=== PATIENT | female | born 1965 | race African-American/Black ===

== ENCOUNTER 2023-10-21 20:24 | Emergency (ER) | payer OTHER, SELFPAY ==
--- NOTE | ~2023-10-21 | XR_ITS ---
EXAMINATION: XR wrist LT min 3V DATE: 10/21/2023 21:08 INDICATION: Left wrist pain TECHNIQUE: Posteroanterior, ulnar deviation, oblique, and lateral views of the left wrist were obtain ed. COMPARISON: none FINDINGS: 1 mm ulnar positive variance. Alignment is otherwise normal. There is a subtle concavity with underly ing lucency at the ulnar side of the proximal articular surface of the lunate with location suspiciou s for ulnocarpal impaction. There is more prominent subarticular lucency with thin sclerotic margins at the ulnar side of the distal radius which could represent either degenerative cystic change or les s likely chronic erosion.. No fracture. 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 IMPRESSION: 1. 1 mm ulnar positive variance with suggestion of mild cystic change at the ulnar side of the lunate suggestive of ulnocarpal impaction. 2. Prominent chronic appearing lucent lesion with thin sclerotic margins at the ulnar side of the dis mayo radial articular surface most likely degenerative cystic change with differential including less likely chronic chronic nonspecific erosion. 3. 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 Reviewed, dictated and finalized at location A. [facility] IMPRESSION: 1. 1 mm ulnar positive variance with suggestion of mild cystic change at the ul fritz side of the lunate suggestive of ulnocarpal impaction. 2. Prominent chronic appearing lucent lesion with thin sclerotic margins at the ulnar side of the distal radial articular surface most likely degenerative cys tic change with differential including less likely chronic chronic nonspecific erosion. 3. 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
[2023-10-21 20:56] VITALS: BP 150/82; PULSE 67; RESP 18; TEMP 36.3; O2SAT 100
--- NOTE | 2023-10-21 23:13 | ED.UPPEXIN ---
HPI - Extremity Injury (Upper) General Chief Complaint: Extremity Injury, Upper Stated Complaint: L wrist injury Time Seen by Provider: 10/21/23 22:14 Source: patient Mode of arrival: ambulatory Limitations: no limitations History of Present Illness HPI narrative: This is a 58 year old female that presents to the ER for left wrist pain. Ongoing over the last several months. Reports pain worse with movement and relieved with rest. 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 Denies decreased ROM or numbness. Related Data Allergies Allergy/AdvReac Type Severity Reaction Status Date / Time No Known Allergies Allergy Unverified 04/19/15 11:04 Review of Systems Review of Systems: CONSTITUTIONAL: Denies fever SKIN: Denies rash MUSCULOSKELETAL: Reports joint pain, and myalgia. NEUROLOGIC: Denies numbness All systems reviewed & are unremarkable except as noted in HPI and below PMFSH Past Medical History Medical History (Updated 10/21/23 @ 23:21 by Claudia Heller PA-C) History of hypertension Social History Social History (Updated 10/21/23 @ 23:15 by Claudia Heller PA-C) Smoking status: Never smoker Exam Narrative: GENERAL: Well-appearing, well-nourished, and in no acute distress. HEAD: Normocephalic, atraumatic. EYES: EOMI. EXTREMITIES: Normal range of motion. No edema, erythema or obvious deformity. Normal radial pulse. Normal sensation SKIN: Warm, dry, no rash. NEURO: No focal deficits. Alert and oriented x3. PSYCH: Normal mood and affect Course Vital Signs Vital signs: Vital Signs Temperature 97.4 F L 10/21/23 20:56 Pulse Rate 67 10/21/23 20:56 Respiratory Rate 18 10/21/23 20:56 Blood Pressure 150/82 H 10/21/23 20:56 Pulse Oximetry 100 10/21/23 20:56 Oxygen Delivery Room Air 10/21/23 20:56 Temperature 97.4 F L 10/21/23 20:56 Pulse Rate 67 10/21/23 20:56 Respiratory Rate 18 10/21/23 20:56 Blood Pressure 150/82 H 10/21/23 20:56 Pulse Oximetry 100 10/21/23 20:56 Oxygen Delivery Room Air 10/21/23 20:56 MDM - Extremity Injury (Upper) MDM Narrative Medical decision making narrative: Patient presents to the ER for wrist pain ongoing over the last several months. No certain injury. She is afebrile and nontoxic appearing. She is neurovascularly intact. Left wrist x-ray shows 1 mm ulnar positive variance. Prominent chronic appearing lucent lesion at the ulnar side of the distal radial articular surface. 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 Patient updated on her workup. Will be given Hand surgery for further follow-up. She was given warnings to return to the ER Differential Diagnosis Differential diagnosis: Likely sprain and strain of wrist and other (carpal tunnel) Imaging Data Radiologist's impression: ITS Impressions Wrist X-Ray 10/21/23 21:14 IMPRESSION: 1. 1 mm ulnar positive variance with suggestion of mild cystic change at the ulnar side of the lunate suggestive of ulnocarpal impaction. 2. Prominent chronic appearing lucent lesion with thin sclerotic margins at the ulnar side of the distal radial articular surface most likely degenerative cystic change with differential including less likely chronic chronic nonspecific erosion. 3. 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 Critical Care Time Critical Care Time Critical Care Time: No Discharge Plan Discharge Clinical Impression: Left wrist pain Patient Disposition: Home, Self-Care Condition: Stable Instructions: Wrist Injury (ED) Additional Instructions: Return to the ER if you experience fever, redness and swelling of your extremity, numbness or any other symptoms that are concerning to you Ice and elevate extremity. Tylenol or Ibuprofen as needed for pain Follow up with hand surgery for further care. Follow-up/Referrals: Jessica Mccrary MD [Physician] - Gamez,Zo Dillard MD [Primary Care Provider] - Stand Alone Forms: Work
[2023-10-21] MEDS: KETOROLAC 30 MG/ML VIAL (*BKC) IM (23:18)
== END 2023-10-21 23:27 | disposition home or self-care (01) ==
PROVIDERS: Emergency Provider Physician Assistant; PCP Family Medicine
DX: M25.532 Pain in left wrist (principal); I10 Essential (primary) hypertension; M19.032 Primary osteoarthritis, left wrist; R93.6 Abnormal findings on diagnostic imaging of limbs
CPT/HCPCS: 73110; 96372; 99283; J1885

== ENCOUNTER 2024-01-06 14:58 | Outpatient (RCR) | payer OTHER, SELFPAY ==
--- NOTE | 2024-01-06 15:54 | OTOPEVAL1 ---
Assessment and note entered by Flash Cook, SOTERO/Sadiq, PRIYA Evaluation Information 01/06/24 Assessment Status Evaluation Diagnosis Left de Quervain's tenosynovitis Subjective Information Patient reports experiencing symptoms for over a year. Reports she is starting to feel the same symptoms on the right side now. She is right handed. Reports difficulties typing, opening a jar , lifting items out of the fridge, and bathing. She works in [employer] at [employer]. Reported Pain Level Pain Score 5/10 left wrist with active ROM Assessment OT Clinical Summary Patient referred to OT with dx of left de Quervain 's tenosynovitis. She presents with pain and wrist ROM deficits which restrict ADLs. Skilled OT indicated for use of modalities, therapeutic exercise, manual therapy, and HEP instruction/ progression to facilitate optimal functional left hand/UE use. Plan of Care Interventions Therapeutic Exercise,Manual Therapy,Therapeutic Activities,Hot Pack/Cold Pack,Ultrasound,Paraffin OT Services Indicated Yes Treatment Frequency and 1x/week for 6 visits Duration These treatments will address the objective and functional deficits as defined above. The patient will be advanced safely and appropriately in order for the patient to progress towards his/her prior level of function. Additional exercises will be introduced and as well as a comprehensive home exercise program upon discharge, if needed, ?to ensure carryover of functional gains achieved in the clinic. This treatment plan has been reviewed and agreement upon by the patient.
--- NOTE | 2024-01-06 15:55 | OPREHPOC ---
Outpatient Therapy Plan of Care This is a Multidisciplinary Plan of Care that may contain components documented by all disciplines (PT, OT, and ST.) OT Problem 1 OT Problem #1 Knowledge Deficit OT Goal 1 Goal 1. Patient to be independent with instructed materials Target Visit 6 OT Problem 2 OT Problem #2 Pain OT Goal 1 Goal 1. Patient to be able to move through full wrist ROM without pain. 2. Patient to be independent with non-medication pain management. Target Visit 6 OT Problem 3 OT Problem #3 Impaired Strength OT Goal 1 Goal 1. Patient to be able to progress to wrist strengthening with 1 lb. free weight in all planes x20 reps without pain. Target Visit 6
--- NOTE | 2024-02-04 16:07 | PCOTNOTE ---
Patient called & cancelled scheduled appointment. Patient did not provided reason over the phone.
--- NOTE | 2024-04-23 08:18 | OTOPDC ---
Assessment and note entered by Flash Cook, OTR/Sadiq, CHT Patient attended the initial OT evaluation on 01/06/24 for dx of left de Quervain's tenosynovitis. She cancelled her follow up appointments and never returned. Discharging from OT at this time. Thank you for this referral.
== END 2024-03-23 11:32 | disposition home or self-care (01) ==
LOC: ANHOT 14:58
PROVIDERS: PCP Family Medicine; Visit Provider Plastic Surgery
DX: M65.4 Radial styloid tenosynovitis [de Quervain] (principal)
CPT/HCPCS: 97018; 97110; 97140; 97165

== ENCOUNTER 2024-06-12 15:42 | Emergency (ER) | payer OTHER, SELFPAY ==
--- NOTE | 2024-06-12 17:49 | ED_ITS ---
HPI - General Adult General Chief complaint: Unspecified Stated complaint: asking to be checked for shigella Time Seen by Provider: 06/12/24 16:57 Source: patient Mode of arrival: ambulatory Limitations: no limitations History of Present Illness HPI narrative: This is a 59-year-old female who presents to the ED for chief complaint of possible exposure to food-borne illness at local [facility] which down recently. [facility] that the restaurant was in the news for having Shigella outbreak. She is here for Shigella testing. Reports that she has had occasional loose stools since the outbreak one week ago. Denies fevers, chills, vomiting, GI bleeding symptoms, urinary symptoms. Related Data Home Medications Medication Instructions Recorded Confirmed No Home Medications 10/22/23 10/22/23 Allergies Allergy/AdvReac Type Severity Reaction Status Date / Time No Known Allergies Allergy Unverified 10/22/23 14:33 Review of Systems Review of Systems: All systems as dictated in HPI PMFSH Past Medical History Medical History (Updated 06/12/24 @ 17:51 by Unruly Low PA-C) History of hypertension Social History Social History (Updated 10/21/23 @ 23:15 by Claudia Heller PA-C) Smoking status: Never smoker Exam Narrative: GENERAL: Well-appearing, well-nourished, and in no acute distress. HEAD: Normocephalic, atraumatic. EYES: PERRLA and EOMI. ENT: Nares clear, no rhinorrhea or epistaxis. Mucous membranes moist. Oropharynx without tonsillar hypertrophy exudate or other lesions. NECK: Supple. No adenopathy or masses. CHEST: No respiratory distress. Clear to auscultation. No wheezes rales or rhonchi HEART: Regular rate and rhythm. No murmur heard. Normal peripheral pulses. ABDOMEN: Soft, nontender, nondistended, normal active bowel sounds. MSK: Normal range of motion. No edema. SKIN: Warm, dry, no rash. NEURO: Alert and oriented x4. No focal deficits. PSYCH: Normal mood and affect. Medical Decision Making MDM Narrative Medical decision making narrative: This is a 59-year-old female who is presenting for shigella testing after possible outbreak from local restaurant. vitals are normal Exam is unremarkable. No evidence of acute abdomen. Is stool studies were ordered and patient feels ready to go home after this. Pt will be discharged in stable condition. Return precautions given and supportive measures discussed. Pt is understanding and agreeable with plan for discharge and follow-up with PCP. Discharge Plan Discharge Clinical Impression: Encounter for medical screening examination Patient Disposition: Home, Self-Care Condition: Stable Instructions: Antibiotic Form Additional Instructions: Your stool be collected and sent for testing here. This testing could also be done with primary care doctor. If the test come back positive, please follow-up closely with PCP on this issue. If you have any new or worsening symptoms please return to the ER for further evaluation. Prescriptions: No Action No Home Medications Follow-up/Referrals: Franco,Zo Dillard MD [Primary Care Provider] - Time of Disposition: 17:52
== END 2024-06-12 18:16 | disposition home or self-care (01) ==
PROVIDERS: Emergency Provider Physician Assistant; PCP Family Medicine
DX: R19.7 Diarrhea, unspecified (principal); I10 Essential (primary) hypertension
CPT/HCPCS: 87045; 87427; 87449; 99283